=== PATIENT | female | born 1985 | race African-American/Black ===

== ENCOUNTER 2019-12-28 05:33 | Emergency (ER) | payer OTHER ==
[~2019-12-28] VITALS: Ht 167.6 cm; Wt 72.6 kg
[2019-12-28 05:45] VITALS: BP 150/74
[2019-12-28] MEDS ORDERED: Tylenol #3 tab (300mg/30mg) ORAL ONE (06:00)
--- NOTE | 2019-12-28 07:37 | Diagnostic Imaging Report ---
EXAM: XR Left Ribs and AP Chest, 3 or More Views CLINICAL HISTORY: PAIN TECHNIQUE: Frontal and oblique views of the left ribs and frontal view of the chest. COMPARISON: No relevant prior studies available. FINDINGS: Lungs: Unremarkable. No consolidation. Pleural space: Unremarkable. No pneumothorax. Heart: Unremarkable. No cardiomegaly. Mediastinum: Unremarkable. Bones/joints: Unremarkable. No acute fracture. Status-post gastric sleeve. IMPRESSION: Normal left rib x-rays.
--- NOTE | 2019-12-28 07:39 | Diagnostic Imaging Report ---
EXAM: XR Lumbosacral Spine, 2 or 3 Views CLINICAL HISTORY: PAIN TECHNIQUE: Frontal and lateral views of the lumbar spine and sacrum. COMPARISON: No relevant prior studies available. FINDINGS/IMPRESSION: The vertebral body heights are maintained. No spondylolisthesis. Straightening of the lumbar lordosis. No scoliosis. Severe intervertebral disc space narrowing at L5-S1 with endplate sclerosis. Associated posterior spondylitic ridging which likely contributes to bilateral foraminal stenosis at L5-S1. Symmetric sacroiliac joints.
--- NOTE | 2019-12-28 07:40 | Diagnostic Imaging Report ---
EXAM: XR Left Shoulder Complete, 2 or More Views CLINICAL HISTORY: PAIN TECHNIQUE: Two or more views of the left shoulder. COMPARISON: No relevant prior studies available. FINDINGS: Bones/joints: Unremarkable. No acute fracture. No dislocation. Soft tissues: Unremarkable. IMPRESSION: No acute fracture or dislocation.
--- NOTE | 2019-12-28 08:06 | Diagnostic Imaging Report ---
EXAM: CT Cervical Spine Without Intravenous Contrast CLINICAL HISTORY: PAIN TECHNIQUE: Axial computed tomography images of the cervical spine without intravenous contrast. CTDI is 20.2 mGy and DLP is 657 mGy-cm. One or more of the following dose reduction techniques were used: automated exposure control, adjustment of the mA and/or kV according to patient size, use of iterative reconstruction technique. COMPARISON: No relevant prior studies available. FINDINGS: The cervical spine vertebral body heights are maintained. There is mild reversal of the cervical lordosis. No spondylolisthesis. The craniocervical junction is intact. The atlantodens interval is maintained. The dens is intact. Multilevel degenerative endplate changes, disc-space narrowing, and posterior spondylitic ridging, preferentially involving C5-6 and C6-7. At the C6 level there is posterior spondylitic ridge which contributes to mild-moderate spinal canal stenosis. There is no foraminal stenosis of the cervical spine. There is no prevertebral soft tissue swelling. The unenhanced neck soft tissues are grossly unremarkable. The visualized lung apices are grossly clear. IMPRESSION: No cervical spine fracture or spondylolisthesis. Multilevel degenerative endplate changes, disc-space narrowing, and posterior spondylitic ridging, preferentially involving C5-6 and C6-7. At the C6 level there is posterior spondylitic ridge which contributes to mild-moderate spinal canal stenosis. There is no foraminal stenosis of the cervical spine. Consider MRI correlation if there is symptomatology at this level.
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
[2019-12-28 08:20] VITALS: BP 148/72
[2019-12-28] MEDS ORDERED: ACETAMINOPHEN500 M3 ORAL (08:21)
[2019-12-28] MEDS ORDERED: ROBAXIN-750750 MG PO (08:21)
[2019-12-28] MEDS ORDERED: IBUPROFEN400 M1 PO (08:22)
[2019-12-28 08:40] VITALS: BP 142/70
== END 2019-12-28 08:43 | disposition home or self-care (01) ==
LOC: EDBD 05:33 → EMR 05:55
DX: S13.9XXA Sprain of joints and ligaments of unspecified parts of neck, initial encounter (principal); S20.219A Contusion of unspecified front wall of thorax, initial encounter; M54.5 Low back pain; E66.9 Obesity, unspecified; V43.52XA Car driver injured in collision with other type car in traffic accident, initial encounter; Y92.410 Unspecified street and highway as the place of occurrence of the external cause; M25.512 Pain in left shoulder; Z98.84 Bariatric surgery status
CPT/HCPCS: 71100; 72020; 72125; 73030; 81025; Z7502; 99284